=== PATIENT | male | born 2000 | race Hispanic/Latino ===

== ENCOUNTER 2023-04-09 00:14 | Emergency (ER) | payer OTHER ==
[~2023-04-09] VITALS: Ht 170.2 cm; Wt 68.0 kg
[2023-04-09] MEDS ORDERED: IBUPROFEN 800 MG TAB PO ONE (02:00)
[2023-04-09] MEDS ORDERED: IBUP-1493 PO (02:01)
[2023-04-09 02:15] VITALS: BP 132/81; PULSE 92; RESP 16; O2SAT 98
== END 2023-04-09 02:15 | disposition home or self-care (01) ==
LOC: EDH 00:14
DX: S96.912A Strain of unspecified muscle and tendon at ankle and foot level, left foot, initial encounter (principal); X50.1XXA Overexertion from prolonged static or awkward postures, initial encounter; Y93.89 Activity, other specified; Y92.89 Other specified places as the place of occurrence of the external cause; Y99.8 Other external cause status
CPT/HCPCS: 73590; 73610